=== PATIENT | female | born 1975 | race Caucasian/White ===

== ENCOUNTER 2019-01-27 13:16 | Emergency (ER) | payer BC, OTHER ==
--- NOTE | 2019-01-27 13:38 | UC ---
Complaint Female HPI - HPI Summary HPI Summary: 43 yo female presents with dysuria. She tells me that for the last 3 days she has noticed urinary discomfort at the end of her stream intermittently throughout the day. She also feels that she has had some urinary frequency. She took a diflucan thinking her symptoms could be yeast related, although she denies discharge, itching, or redness. She feels well otherwise and denies fever , chills, abdominal pain, n/v, flank pain, hematuria. She has an IUD and does not get her period. - History Of Current Complaint Stated Complaint: URINARY Time Seen by Provider: 01/27/19 13:38 Hx Obtained From: Patient Hx Last Menstrual Period: 05/09/16-IUD Onset/Duration: Gradual Onset Severity Initially: Mild Severity Currently: Mild Pain Intensity: 1 Pain Scale Used: 0-10 Numeric - Allergies/Home Medications Allergies/Adverse Reactions: Allergies Allergy/AdvReac Type Severity Reaction Status Date / Time No Known Allergies Allergy Verified 01/27/19 13:56 Home Medications: Home Medications Fluconazole 1 tab PO ONCE PRN 01/27/19 [History Confirmed 01/27/19] Ibuprofen 400 mg PO ONCE PRN 01/27/19 [History Confirmed 01/27/19] PMH/Surg Hx/FS Hx/Imm Hx Psychological History: Anxiety, Depression - Surgical History Surgical History: None - Family History Known Family History: Positive: Cardiac Disease Negative: Hypertension, Diabetes - Social History Lives: With Family Alcohol Use: Weekly Alcohol Amount: 3-4 times weekly Substance Use Type: None Smoking Status (MU): Never Smoked Tobacco Have You Smoked in the Last Year: No Review of Systems All Other Systems Reviewed And Are Negative: Yes Constitutional: Positive: Negative Skin: Positive: Negative Respiratory: Positive: Negative Cardiovascular: Positive: Negative Genitourinary: Positive: Dysuria Neurovascular: Positive: Negative Neurological: Positive: Negative Psychological: Positive: Negative Physical Exam - Summary Physical Exam Summary: GENERAL: NAD. WDWN. No pain distress. SKIN: No rashes, sores, lesions, or open wounds. NECK: Supple. Nontender. No lymphadenopathy. CHEST: CTAB. No r/r/w. No accessory muscle use. Breathing comfortably and in no distress. CV: RRR. Without m/r/g. Pulses intact. Cap refill <2seconds ABDOMEN: Soft. NTTP. No distention or guarding. No CVA tenderness. Bowel sounds present NEURO: Alert. PSYCH: Age appropriate behavior. Triage Information Reviewed: Yes Vital Signs: Vital Signs: Temp Pulse Resp BP Pulse Ox 98.7 F 66 18 116/87 98 01/27/19 13:50 01/27/19 13:50 01/27/19 13:50 01/27/19 13:50 01/27/19 13:50 Vital Signs Reviewed: Yes Complaint Female Dx - Course Course Of Treatment: UA negative. Discussed results with pt and will send urine for culture and treat prn. F/u with PCP if symptoms persist - Differential Dx/Diagnosis Provider Diagnosis: Dysuria Discharge - Sign-Out/Discharge Documenting (check all that apply): Patient Departure All imaging exams completed and their final reports reviewed: No Studies - Discharge Plan Condition: Stable Disposition: HOME Patient Education Materials: Dysuria (ED) Referrals: Amada Harrison MD [Primary Care Provider] - Additional Instructions: If you develop a fever, shortness of breath, chest pain, new or worsening symptoms - please call your PCP or go to the ED immediately. Your urine did not show any sign of infection today. We have sent your urine to the lab for further testing and shoulder have results in 2-3 days. Please call to ask about your results if you have not heard from us. - Billing Disposition and Condition Condition: STABLE Disposition: Home - Attestation Statements Provider Attestation: I am administratively signing this document. I was available for consultation for this patient. I did not evaluate the patient, did not have a doctor/patient relationship with the patient, or participate in any medical decision making or disposition decisions unless I am specifically named in the chart as having consulted on the patient. If I have consulted on the patient, please see my own ED note on the patient encounter. Jenna Godoy MD
[2019-01-27 13:57] VITALS: BP 116/87
== END 2019-01-27 14:23 | disposition home or self-care (01) ==
LOC: UCEAST 13:16
DX: R30.0 Dysuria (principal); F32.9 Major depressive disorder, single episode, unspecified; F41.9 Anxiety disorder, unspecified
CPT/HCPCS: 81002; 87086; 99211; G0463